=== PATIENT | female | born 1955 | race Asian ===

== ENCOUNTER 2017-05-06 13:10 | Emergency (ER) | payer OTHER ==
[~2017-05-06] VITALS: Ht 157.5 cm; Wt 72.6 kg
[~2017-05-06 13:10] MED LIST: AMOX875 PO; CYCL10 PO; ESOM20 PO; HYDACE5 PO; IBUP400 PO; ONDA4ODT MM; PROM25 PO; SUDOGEST
[2017-05-06 13:44] LABS: BASOPHILS ABSOLUTE AUTO 0.03 K/mm3 (0.00-0.23); BASOPHILS PERCENT AUTO 1 % (0-2); EOSINOPHILS ABSOLUTE AUTO 0.07 K/mm3 (0.00-0.68); EOSINOPHILS PERCENT AUTO 1 % (0-6); Hematocrit 41.5 % (33.0-51.0); Hemoglobin 13.7 g/dL (11.5-16.0); IMMATURE GRAN ABSOLUTE AUTO 0.01 K/mm3 (0.00-0.10); IMMATURE GRAN PERCENT AUTO 0 % (0-1); LYMPHOCYTES ABSOLUTE AUTO 2.54 K/mm3 (0.84-5.20); LYMPHOCYTES PERCENT AUTO 38 % (21-46); MONOCYTES ABSOLUTE AUTO 0.55 K/mm3 (0.16-1.47); MONOCYTES PERCENT AUTO 8 % (4-13); Mean Corpuscular HGB 29.6 pg (26.0-34.0); Mean Corpuscular Volume 90 fL (80-100); Mean Platelet Volume 10.2 fL (9.1-12.4); NEUTROPHILS ABSOLUTE AUTO 3.41 K/mm3 (1.96-9.15); NEUTROPHILS PERCENT AUTO 52 % (41-73); Platelet Count 237 K/mm3 (150-400); RDW Coefficient Variation 12.6 % (11.7-14.2); RDW Standard Deviation 40.8 fL (35.1-46.3); Red Blood Cell Count 4.63 M/mm3 (3.80-5.20); White Blood Cell Count 6.61 K/mm3 (4.00-11.30)
[2017-05-06 14:04] LABS: Alanine Aminotransfer (ALT/SGP 31 U/L (12-78); Albumin, Blood 3.5 g/dL (3.4-5.0); Albumin/Globulin Ratio 0.8 (0.8-1.8); Alk Phos 81 U/L (50-136); Anion Gap 6 mmol/L (6-16); Aspartate Aminotrans (AST/SGOT 24 U/L (12-37); Bilirubin, Total 0.4 mg/dL (0.1-1.0); Blood Urea Nitrogen 21 mg/dL (8-24); Bun/Creatinine Ratio 31.7 (12.0-20.0); CO2, Blood 25 mmol/L (21-32); Calcium, Blood 8.6 mg/dL (8.5-10.1); Chloride, Blood 108 mmol/L (98-108); Creatinine, Blood 0.66 mg/dL (0.40-1.00); Globulin, Blood 4.2 g/dL (2.2-4.0); Glomerular Filtration Rate >60 (60-); Glucose, Blood 88 mg/dL (70-99); Potassium, Blood 4.2 mmol/L (3.5-5.5); Sodium, Blood 139 mmol/L (136-145); Total Protein, Blood 7.7 g/dL (6.4-8.2)
[2017-05-06 15:04] LABS: Troponin I <0.015 ng/mL (0.000-0.040)
[2017-05-06 15:45] LABS: Thyroid Stimulating Hormone 0.557 uIU/mL (0.360-4.800)
[2017-05-06] MEDS ORDERED: Motion Sickness25 M1 PO (16:03)
[2017-05-06] MEDS ORDERED: MECL12.5 PO (16:05)
== END 2017-05-06 16:11 | disposition home or self-care (01) ==
LOC: ER 13:10
PROVIDERS: Emergency Medicine
DX: R42 Dizziness and giddiness (principal); R11.0 Nausea; Z88.1 Allergy status to other antibiotic agents
CPT/HCPCS: 36415; 80050; 80053; 81000; 84443; 84484; 85025; 93005; 93010; 96361; 96374; 99284; J2550; J7030

== ENCOUNTER 2017-10-18 12:49 | Emergency (ER) | payer OTHER ==
[~2017-10-18] VITALS: Ht 165.1 cm; Wt 81.7 kg
[~2017-10-18 12:49] MED LIST changes: +MECL12.5 PO; +Motion Sickness25 M1 PO
[2017-10-18 13:26] LABS: BASOPHILS ABSOLUTE AUTO 0.03 K/mm3 (0.00-0.23); BASOPHILS PERCENT AUTO 0 % (0-2); EOSINOPHILS ABSOLUTE AUTO 0.13 K/mm3 (0.00-0.68); EOSINOPHILS PERCENT AUTO 2 % (0-6); Hemoglobin 13.6 g/dL (11.5-16.0); IMMATURE GRAN ABSOLUTE AUTO 0.01 K/mm3 (0.00-0.10); IMMATURE GRAN PERCENT AUTO 0 % (0-1); LYMPHOCYTES ABSOLUTE AUTO 2.96 K/mm3 (0.84-5.20); LYMPHOCYTES PERCENT AUTO 42 % (21-46); MONOCYTES ABSOLUTE AUTO 0.55 K/mm3 (0.16-1.47); MONOCYTES PERCENT AUTO 8 % (4-13); Mean Corpuscular HGB 29.8 pg (26.0-34.0); Mean Corpuscular HGB Conc 33.2 g/dL (31.5-36.5); Mean Corpuscular Volume 90 fL (80-100); Mean Platelet Volume 9.9 fL (9.1-12.4); NEUTROPHILS ABSOLUTE AUTO 3.33 K/mm3 (1.96-9.15); NEUTROPHILS PERCENT AUTO 48 % (41-73); Platelet Count 237 K/mm3 (150-400); RDW Coefficient Variation 12.3 % (11.7-14.2); RDW Standard Deviation 40.6 fL (35.1-46.3); Red Blood Cell Count 4.56 M/mm3 (3.80-5.20); White Blood Cell Count 7.01 K/mm3 (4.00-11.30)
[2017-10-18 14:20] LABS: Alanine Aminotransfer (ALT/SGP 31 U/L (12-78); Albumin, Blood 3.6 g/dL (3.4-5.0); Albumin/Globulin Ratio 0.9 (0.8-1.8); Alk Phos 77 U/L (50-136); Anion Gap 10 mmol/L (6-16); Aspartate Aminotrans (AST/SGOT 36 U/L (12-37); Bilirubin, Total 0.5 mg/dL (0.1-1.0); Blood Urea Nitrogen 12 mg/dL (8-24); Bun/Creatinine Ratio 13.4 (12.0-20.0); CO2, Blood 24 mmol/L (21-32); Calcium, Blood 9.2 mg/dL (8.5-10.1); Chloride, Blood 105 mmol/L (98-108); Glomerular Filtration Rate >60 (60-); Glucose, Blood 121 mg/dL (70-99); Potassium, Blood 3.8 mmol/L (3.5-5.5); Sodium, Blood 139 mmol/L (136-145); Total Protein, Blood 7.6 g/dL (6.4-8.2)
[2017-10-18] MEDS ORDERED: HYDR1TAB94 PO (14:34)
[2017-10-18] MEDS ORDERED: IBUP600 PO (14:34)
== END 2017-10-18 15:05 | disposition home or self-care (01) ==
LOC: ER 12:49
PROVIDERS: Emergency Medicine
DX: T23.071A Burn of unspecified degree of right wrist, initial encounter (principal); M54.2 Cervicalgia; R10.13 Epigastric pain; Z88.0 Allergy status to penicillin; V47.5XXA Car driver injured in collision with fixed or stationary object in traffic accident, initial encounter
CPT/HCPCS: 16000; 71045; 72125; 74177; 80053; 83690; 85025; 96374; 99285-25; J3010; Q9967

== ENCOUNTER → 2017-10-23 | Outpatient (CLI) | payer OTHER ==
[~2017-10-23] MED LIST changes: +HYDR1TAB94 PO; +IBUP600 PO
[2017-10-23 13:02] LABS: BASOPHILS ABSOLUTE AUTO 0.03 K/mm3 (0.00-0.23); BASOPHILS PERCENT AUTO 1 % (0-2); EOSINOPHILS ABSOLUTE AUTO 0.08 K/mm3 (0.00-0.68); EOSINOPHILS PERCENT AUTO 1 % (0-6); Hematocrit 40.5 % (33.0-51.0); Hemoglobin 13.3 g/dL (11.5-16.0); IMMATURE GRAN ABSOLUTE AUTO 0.01 K/mm3 (0.00-0.10); IMMATURE GRAN PERCENT AUTO 0 % (0-1); LYMPHOCYTES ABSOLUTE AUTO 2.16 K/mm3 (0.84-5.20); LYMPHOCYTES PERCENT AUTO 39 % (21-46); MONOCYTES ABSOLUTE AUTO 0.51 K/mm3 (0.16-1.47); MONOCYTES PERCENT AUTO 9 % (4-13); Mean Corpuscular HGB 29.6 pg (26.0-34.0); Mean Corpuscular HGB Conc 32.8 g/dL (31.5-36.5); Mean Corpuscular Volume 90 fL (80-100); Mean Platelet Volume 9.7 fL (9.1-12.4); NEUTROPHILS PERCENT AUTO 50 % (41-73); Platelet Count 248 K/mm3 (150-400); RDW Coefficient Variation 12.5 % (11.7-14.2); RDW Standard Deviation 41.3 fL (35.1-46.3); White Blood Cell Count 5.59 K/mm3 (4.00-11.30)
== END | disposition home or self-care (01) ==
LOC: LAB EV 12:57 → LAB SHORT 12:57
PROVIDERS: Physician Assistant
DX: R10.9 Unspecified abdominal pain (principal)
CPT/HCPCS: 85025

== ENCOUNTER 2018-04-14 23:50 | Emergency (ER) | payer OTHER ==
[~2018-04-14] VITALS: Ht 157.5 cm; Wt 72.6 kg
[2018-04-15] MEDS ORDERED: MOTION RELIEF25 MG PO (01:34)
[2018-04-15] MEDS ORDERED: ONDA8 PO (01:35)
[2018-04-15 01:41] LABS: BASOPHILS ABSOLUTE AUTO 0.04 K/mm3 (0.00-0.23); BASOPHILS PERCENT AUTO 1 % (0-2); EOSINOPHILS ABSOLUTE AUTO 0.22 K/mm3 (0.00-0.68); EOSINOPHILS PERCENT AUTO 3 % (0-6); Hematocrit 43.4 % (33.0-51.0); Hemoglobin 14.1 g/dL (11.5-16.0); IMMATURE GRAN ABSOLUTE AUTO 0.01 K/mm3 (0.00-0.10); IMMATURE GRAN PERCENT AUTO 0 % (0-1); LYMPHOCYTES ABSOLUTE AUTO 2.87 K/mm3 (0.84-5.20); LYMPHOCYTES PERCENT AUTO 37 % (21-46); MONOCYTES ABSOLUTE AUTO 0.77 K/mm3 (0.16-1.47); MONOCYTES PERCENT AUTO 10 % (4-13); Mean Corpuscular HGB 29.6 pg (26.0-34.0); Mean Corpuscular HGB Conc 32.5 g/dL (31.5-36.5); Mean Corpuscular Volume 91 fL (80-100); Mean Platelet Volume 9.5 fL (9.1-12.4); NEUTROPHILS ABSOLUTE AUTO 3.85 K/mm3 (1.96-9.15); NEUTROPHILS PERCENT AUTO 50 % (41-73); Platelet Count 281 K/mm3 (150-400); RDW Coefficient Variation 12.3 % (11.7-14.2); RDW Standard Deviation 41.4 fL (35.1-46.3); Red Blood Cell Count 4.76 M/mm3 (3.80-5.20); White Blood Cell Count 7.76 K/mm3 (4.00-11.30)
[2018-04-15 02:00] LABS: Alanine Aminotransfer (ALT/SGP 26 U/L (12-78); Albumin, Blood 3.7 g/dL (3.4-5.0); Albumin/Globulin Ratio 0.8 (0.8-1.8); Alk Phos 90 U/L (50-136); Anion Gap 6 mmol/L (6-16); Aspartate Aminotrans (AST/SGOT 23 U/L (12-37); Bilirubin, Total 0.4 mg/dL (0.1-1.0); Blood Urea Nitrogen 16 mg/dL (8-24); Bun/Creatinine Ratio 17.4 (12.0-20.0); CO2, Blood 27 mmol/L (21-32); Calcium, Blood 8.8 mg/dL (8.5-10.1); Chloride, Blood 108 mmol/L (98-108); Creatinine, Blood 0.92 mg/dL (0.40-1.00); Globulin, Blood 4.4 g/dL (2.2-4.0); Glomerular Filtration Rate >60 (60-); Glucose, Blood 109 mg/dL (70-99); Potassium, Blood 3.9 mmol/L (3.5-5.5); Sodium, Blood 141 mmol/L (136-145); Total Protein, Blood 8.1 g/dL (6.4-8.2); Troponin I <0.015 ng/mL (0.000-0.040)
[2018-04-15 02:16] LABS: Source, Urine Clean Catch
[2018-04-15 02:18] LABS: Appearance, Urine Clear (Clear); Bilirubin, Urine Neg (Neg); Blood, Urine Neg (Neg); Color, Urine Yellow (P-Yellow); Glucose Qualitative, Urine Neg (Neg); Ketones, Urine Neg (Neg); Leukocyte Esterase, Urine Neg (Neg); Nitrite, Urine Neg (Neg); Protein, Urine Neg (Neg); Urobilinogen, Urine NORM (Normal)
== END 2018-04-15 02:58 | disposition home or self-care (01) ==
LOC: ER 23:50
PROVIDERS: Emergency Medicine
DX: R42 Dizziness and giddiness (principal); Z88.0 Allergy status to penicillin; Z79.899 Other long term (current) drug therapy
CPT/HCPCS: 36415; 80053; 81003; 83690; 84484; 85025; 93005; 93010; 96374; 99283-25; J2405; J7030

== ENCOUNTER → 2018-05-06 | Outpatient (CLI) | payer OTHER ==
[~2018-05-06] MED LIST changes: +MOTION RELIEF25 MG PO; +ONDA8 PO
[2018-05-08 14:08] LABS: HPV 16 Negative (Negative); HPV 18 Negative (Negative); HPV OTHER HR TYPES Negative (Negative)
== END | disposition home or self-care (01) ==
LOC: LAB SHORT 09:50 → LAB 09:50
PROVIDERS: Obstetrics & Gynecology
DX: Z01.419 Encounter for gynecological examination (general) (routine) without abnormal findings (principal)
CPT/HCPCS: 87624; G0123

== ENCOUNTER 2018-06-25 23:44 | Emergency (ER) | payer OTHER ==
[~2018-06-25] VITALS: Ht 160 cm; Wt 77.1 kg
[2018-06-26 00:29] LABS: BASOPHILS ABSOLUTE AUTO 0.02 K/mm3 (0.00-0.23); BASOPHILS PERCENT AUTO 0 % (0-2); EOSINOPHILS PERCENT AUTO 2 % (0-6); Hematocrit 44.8 % (33.0-51.0); Hemoglobin 14.6 g/dL (11.5-16.0); IMMATURE GRAN ABSOLUTE AUTO 0.01 K/mm3 (0.00-0.10); IMMATURE GRAN PERCENT AUTO 0 % (0-1); LYMPHOCYTES ABSOLUTE AUTO 1.92 K/mm3 (0.84-5.20); LYMPHOCYTES PERCENT AUTO 31 % (21-46); MONOCYTES PERCENT AUTO 10 % (4-13); Mean Corpuscular HGB 30.2 pg (26.0-34.0); Mean Corpuscular HGB Conc 32.6 g/dL (31.5-36.5); Mean Corpuscular Volume 93 fL (80-100); Mean Platelet Volume 9.5 fL (9.1-12.4); NEUTROPHILS PERCENT AUTO 58 % (41-73); Platelet Count 277 K/mm3 (150-400); RDW Coefficient Variation 12.8 % (11.7-14.2); RDW Standard Deviation 43.5 fL (35.1-46.3); Red Blood Cell Count 4.84 M/mm3 (3.80-5.20); White Blood Cell Count 6.25 K/mm3 (4.00-11.30)
[2018-06-26 00:47] LABS: Alanine Aminotransfer (ALT/SGP 35 U/L (12-78); Albumin, Blood 4.2 g/dL (3.4-5.0); Alk Phos 94 U/L (50-136); Anion Gap 6 mmol/L (6-16); Aspartate Aminotrans (AST/SGOT 28 U/L (12-37); Bilirubin, Total 0.4 mg/dL (0.1-1.0); Blood Urea Nitrogen 11 mg/dL (8-24); CO2, Blood 28 mmol/L (21-32); Calcium, Blood 9.4 mg/dL (8.5-10.1); Chloride, Blood 107 mmol/L (98-108); Creatinine, Blood 0.73 mg/dL (0.40-1.00); Globulin, Blood 4.3 g/dL (2.2-4.0); Glomerular Filtration Rate >60 (60-); Glucose, Blood 111 mg/dL (70-99); Potassium, Blood 3.8 mmol/L (3.5-5.5); Sodium, Blood 141 mmol/L (136-145); Total Protein, Blood 8.5 g/dL (6.4-8.2)
[2018-06-26 00:54] LABS: Source, Urine Clean Catch
[2018-06-26 00:57] LABS: Bilirubin, Urine Neg (Neg); Blood, Urine 1+ (Neg); Glucose Qualitative, Urine Neg (Neg); Ketones, Urine Neg (Neg); Leukocyte Esterase, Urine Neg (Neg); Nitrite, Urine Neg (Neg); Protein, Urine Neg (Neg); Specific Gravity, Urine 1.015 (1.003-1.022); Urobilinogen, Urine NORM (Normal)
[2018-06-26 01:03] LABS: Appearance, Urine Clear (Clear); Color, Urine Yellow (P-Yellow)
[2018-06-26 01:04] LABS: Bacteria Rare /hpf; Red Blood Cells, Urine Rare /hpf (0-2); Squamous Epithelial Cells Few /hpf (Few); White Blood Cells, Urine Not Seen /hpf (0-5)
== END 2018-06-26 04:05 | disposition home or self-care (01) ==
LOC: ER 23:44
PROVIDERS: Emergency Medicine
DX: R42 Dizziness and giddiness (principal); Z88.0 Allergy status to penicillin; Z79.899 Other long term (current) drug therapy
CPT/HCPCS: 36415; 70450; 80053; 81001; 85025; 96361; 96374; 99284-25; J2405; J7030

== ENCOUNTER 2018-08-14 20:33 | Emergency (ER) | payer OTHER ==
[~2018-08-14] VITALS: Ht 157.5 cm; Wt 77.1 kg
[~2018-08-14 20:33] MED LIST changes: -ONDA8 PO
[2018-08-14 21:01] LABS: BASOPHILS ABSOLUTE AUTO 0.02 K/mm3 (0.00-0.23); BASOPHILS PERCENT AUTO 0 % (0-2); EOSINOPHILS ABSOLUTE AUTO 0.17 K/mm3 (0.00-0.68); EOSINOPHILS PERCENT AUTO 2 % (0-6); Hemoglobin 13.1 g/dL (11.5-16.0); IMMATURE GRAN ABSOLUTE AUTO 0.02 K/mm3 (0.00-0.10); IMMATURE GRAN PERCENT AUTO 0 % (0-1); LYMPHOCYTES ABSOLUTE AUTO 2.92 K/mm3 (0.84-5.20); LYMPHOCYTES PERCENT AUTO 38 % (21-46); MONOCYTES PERCENT AUTO 11 % (4-13); Mean Corpuscular HGB 29.6 pg (26.0-34.0); Mean Corpuscular Volume 93 fL (80-100); Mean Platelet Volume 9.8 fL (9.1-12.4); NEUTROPHILS PERCENT AUTO 48 % (41-73); Platelet Count 250 K/mm3 (150-400); RDW Coefficient Variation 12.6 % (11.7-14.2); RDW Standard Deviation 43.5 fL (35.1-46.3); Red Blood Cell Count 4.42 M/mm3 (3.80-5.20); White Blood Cell Count 7.63 K/mm3 (4.00-11.30)
[2018-08-14 21:21] LABS: Alanine Aminotransfer (ALT/SGP 30 U/L (12-78); Albumin, Blood 3.6 g/dL (3.4-5.0); Albumin/Globulin Ratio 0.9 (0.8-1.8); Alk Phos 91 U/L (50-136); Anion Gap 6 mmol/L (6-16); Aspartate Aminotrans (AST/SGOT 25 U/L (12-37); Bilirubin, Total 0.3 mg/dL (0.1-1.0); Blood Urea Nitrogen 18 mg/dL (8-24); Bun/Creatinine Ratio 20.4 (12.0-20.0); CO2, Blood 29 mmol/L (21-32); Calcium, Blood 8.8 mg/dL (8.5-10.1); Chloride, Blood 107 mmol/L (98-108); Creatinine, Blood 0.88 mg/dL (0.40-1.00); Globulin, Blood 3.8 g/dL (2.2-4.0); Glomerular Filtration Rate >60 (60-); Glucose, Blood 103 mg/dL (70-99); Potassium, Blood 3.8 mmol/L (3.5-5.5); Sodium, Blood 142 mmol/L (136-145); Total Protein, Blood 7.4 g/dL (6.4-8.2)
[2018-08-14 23:32] LABS: Source, Urine Clean Catch
[2018-08-14 23:35] LABS: Bilirubin, Urine Neg (Neg); Blood, Urine Neg (Neg); Glucose Qualitative, Urine Neg (Neg); Ketones, Urine Neg (Neg); Leukocyte Esterase, Urine Neg (Neg); Nitrite, Urine Neg (Neg); Protein, Urine Neg (Neg); Specific Gravity, Urine 1.015 (1.003-1.022); Urobilinogen, Urine NORM (Normal); pH, Urine 6.5 (5.0-8.0)
[2018-08-14 23:45] LABS: Appearance, Urine Clear (Clear); Color, Urine Yellow (P-Yellow)
== END 2018-08-15 00:13 | disposition home or self-care (01) ==
LOC: ER 20:33
PROVIDERS: Emergency Medicine
DX: R42 Dizziness and giddiness (principal); R11.0 Nausea; Z88.1 Allergy status to other antibiotic agents; Z79.899 Other long term (current) drug therapy
CPT/HCPCS: 36415; 80053; 81003; 83690; 84484; 85025; 93005; 93010; 96361; 96374; 99284-25; J2405; J7030

== ENCOUNTER 2018-08-19 18:34 | Inpatient (IN) | payer OTHER ==
[~2018-08-19] VITALS: Ht 165.1 cm; Wt 81.6 kg
[2018-08-19 19:18] LABS: Source, Urine Clean Catch
[2018-08-19 19:22] LABS: BASOPHILS ABSOLUTE AUTO 0.02 K/mm3 (0.00-0.23); BASOPHILS PERCENT AUTO 0 % (0-2); EOSINOPHILS ABSOLUTE AUTO 0.07 K/mm3 (0.00-0.68); EOSINOPHILS PERCENT AUTO 1 % (0-6); Hematocrit 41.9 % (33.0-51.0); Hemoglobin 13.8 g/dL (11.5-16.0); IMMATURE GRAN ABSOLUTE AUTO 0.01 K/mm3 (0.00-0.10); IMMATURE GRAN PERCENT AUTO 0 % (0-1); LYMPHOCYTES ABSOLUTE AUTO 2.39 K/mm3 (0.84-5.20); LYMPHOCYTES PERCENT AUTO 35 % (21-46); MONOCYTES ABSOLUTE AUTO 0.67 K/mm3 (0.16-1.47); MONOCYTES PERCENT AUTO 10 % (4-13); Mean Corpuscular HGB 30.2 pg (26.0-34.0); Mean Corpuscular HGB Conc 32.9 g/dL (31.5-36.5); Mean Corpuscular Volume 92 fL (80-100); Mean Platelet Volume 9.4 fL (9.1-12.4); NEUTROPHILS ABSOLUTE AUTO 3.59 K/mm3 (1.96-9.15); NEUTROPHILS PERCENT AUTO 53 % (41-73); Platelet Count 262 K/mm3 (150-400); RDW Coefficient Variation 12.5 % (11.7-14.2); Red Blood Cell Count 4.57 M/mm3 (3.80-5.20); White Blood Cell Count 6.75 K/mm3 (4.00-11.30)
[2018-08-19 19:28] LABS: Bilirubin, Urine Neg (Neg); Blood, Urine Neg (Neg); Color, Urine Pale Yellow (P-Yellow); Glucose Qualitative, Urine Neg (Neg); Ketones, Urine Neg (Neg); Leukocyte Esterase, Urine Neg (Neg); Nitrite, Urine Neg (Neg); Protein, Urine Neg (Neg); Specific Gravity, Urine 1.005 (1.003-1.022); Urobilinogen, Urine NORM (Normal)
[2018-08-19 19:29] LABS: Appearance, Urine Clear (Clear)
[2018-08-19] MEDS ORDERED: Multivitamin1 EAC1 PO (19:42)
[2018-08-19] MEDS ORDERED: VITAMIN B-122000 MCG PO (19:42)
[2018-08-19] MEDS ORDERED: VENL75ER PO (19:47)
[2018-08-19 19:54] LABS: Alanine Aminotransfer (ALT/SGP 37 U/L (12-78); Albumin, Blood 3.9 g/dL (3.4-5.0); Alk Phos 97 U/L (50-136); Anion Gap 4 mmol/L (6-16); Aspartate Aminotrans (AST/SGOT 25 U/L (12-37); Bilirubin, Total 0.5 mg/dL (0.1-1.0); Blood Urea Nitrogen 9 mg/dL (8-24); Bun/Creatinine Ratio 11.7 (12.0-20.0); CO2, Blood 28 mmol/L (21-32); Calcium, Blood 9.6 mg/dL (8.5-10.1); Chloride, Blood 106 mmol/L (98-108); Creatinine, Blood 0.77 mg/dL (0.40-1.00); Globulin, Blood 4.1 g/dL (2.2-4.0); Glomerular Filtration Rate >60 (60-); Glucose, Blood 156 mg/dL (70-99); Potassium, Blood 3.9 mmol/L (3.5-5.5); Sodium, Blood 138 mmol/L (136-145)
[2018-08-19 20:03] LABS: Magnesium, Blood 2.3 mg/dL (1.6-2.4); Troponin I <0.015 ng/mL (0.000-0.040)
[2018-08-19] MEDS ORDERED: Ondansetron Odt8 MG SL (20:11)
[2018-08-20 02:21] LABS: BASOPHILS ABSOLUTE AUTO 0.02 K/mm3 (0.00-0.23); BASOPHILS PERCENT AUTO 0 % (0-2); EOSINOPHILS ABSOLUTE AUTO 0.01 K/mm3 (0.00-0.68); EOSINOPHILS PERCENT AUTO 0 % (0-6); Hematocrit 38.2 % (33.0-51.0); Hemoglobin 12.6 g/dL (11.5-16.0); IMMATURE GRAN ABSOLUTE AUTO 0.01 K/mm3 (0.00-0.10); IMMATURE GRAN PERCENT AUTO 0 % (0-1); LYMPHOCYTES ABSOLUTE AUTO 1.41 K/mm3 (0.84-5.20); LYMPHOCYTES PERCENT AUTO 23 % (21-46); MONOCYTES ABSOLUTE AUTO 0.39 K/mm3 (0.16-1.47); MONOCYTES PERCENT AUTO 6 % (4-13); Mean Corpuscular Volume 91 fL (80-100); Mean Platelet Volume 9.5 fL (9.1-12.4); NEUTROPHILS ABSOLUTE AUTO 4.37 K/mm3 (1.96-9.15); NEUTROPHILS PERCENT AUTO 70 % (41-73); Platelet Count 250 K/mm3 (150-400); RDW Coefficient Variation 12.6 % (11.7-14.2); RDW Standard Deviation 42.2 fL (35.1-46.3); White Blood Cell Count 6.21 K/mm3 (4.00-11.30)
[2018-08-20 02:35] LABS: International Normalized Ratio 0.99; Prothrombin Time Results 10.5 Sec (9.7-11.5)
--- NOTE | 2018-08-20 02:43 | NUR ---
[facility]ARE [facility]20 FROM ED RN FLAVIA Chao PATIENT ARRIVED TO UNIT VIA STRETCHER; TRANSFER VIA SLIDE SHEET AND THREE STAFF FROM ED TO PCU STRETCHER. PATIENT'S DAUGHTER AT BEDSIDE FOR ADMISSION. PATIENT ALERT AND ORIENTED X4; REPORTS SHE IS TIRED AND DROWSY AT TIMES. POTASSIUM INFUSING PER ORDER UPON ARRIVAL; NS STARTED PER ORDER. REPORTED FROM ED RN TO NOT GIVEN AMIODARONE GTT; WAS GIVEN METOPROLOL IV AND PO; VTAC HAS DECREASED FROM 4-6 DOWN TO 1-2 TO PVC'S. PATIENT ABLE TO COMMUNICATE NEEDS WITH STAFF; SPEAKS MONTSERRATIAN; DAUGHTER REPORTS STAFF NEEDS TO TALK SLOW SO PATIENT CAN UNDERSTAND BETTER. PATIENT USES BEDPAN IN BED. NSR W/ SOME VTAC NOTED SINCE ADMISSION; OXYGEN SATURATION ABOVE 90% ON ROOM AIR. ADMISSION COMPLETE. PATIENT CURRENTLY RESTING IN BED; CALL LIGHT IN REACH; BED IN LOWEST POSISTION; WILL CONTINUE TO MONITOR AND ASSESS UNTIL END OF SHIFT.
[2018-08-20 02:48] LABS: Alanine Aminotransfer (ALT/SGP 28 U/L (12-78); Albumin, Blood 3.3 g/dL (3.4-5.0); Albumin/Globulin Ratio 0.9 (0.8-1.8); Alk Phos 83 U/L (50-136); Anion Gap 5 mmol/L (6-16); Aspartate Aminotrans (AST/SGOT 18 U/L (12-37); Bilirubin, Total 0.4 mg/dL (0.1-1.0); Blood Urea Nitrogen 7 mg/dL (8-24); Bun/Creatinine Ratio 11.6 (12.0-20.0); CO2, Blood 25 mmol/L (21-32); Calcium, Blood 8.3 mg/dL (8.5-10.1); Chloride, Blood 111 mmol/L (98-108); Free Thyroxine 1.18 ng/dL (0.70-1.60); Globulin, Blood 3.5 g/dL (2.2-4.0); Glomerular Filtration Rate >60 (60-); Glucose, Blood 132 mg/dL (70-99); Magnesium, Blood 2.6 mg/dL (1.6-2.4); Potassium, Blood 4.2 mmol/L (3.5-5.5); Sodium, Blood 141 mmol/L (136-145); Total Protein, Blood 6.8 g/dL (6.4-8.2)
[2018-08-20 02:51] LABS: Triiodothyronine, Free 2.53 pg/mL (2.18-3.98)
--- NOTE | 2018-08-20 06:56 | NUR ---
PATIENT SLEPT ABOUT SIX HOURS LAST NIGHT. VSS. NO MORE THAN 1-2 VTAC RUNS REPORTED. PATIENT UP TO BEDSIDE COMMODE THIS AM; REPORTS SHE IS FEELING BETTER. WILL CONTINUE TO MONITOR AND ASSESS UNTIL END OF SHIFT.
--- NOTE | 2018-08-20 09:20 | NUR ---
LET DR. NOLASCO KNOW THAT PT IS HAVING FREQUENT RUNS OF VTACH UP TO 22 BEATS AND ROUTINE DOSE OF METOPROLOL WAS GIVEN EARLY AND HAS NOT STOPPED THE VTACH. DR. ORDRIGUEZ SAW PT, REVIEWING ECHO RESULTS, AND WORKING ON NEW ORDERS TO TREAT NEW ONSET HYPERTHYROIDISM.
[2018-08-20 12:20] LABS: C-REACTIVE PROTEIN, EXT RANGE <0.290 mg/dL (0.000-0.300)
[2018-08-20 12:24] LABS: Troponin I <0.015 ng/mL (0.000-0.040)
--- NOTE | 2018-08-20 15:49 | NUR ---
REC'D CALL FROM NUCLEAR MED RE: NM THYROID UPTAKE SCAN DR. MEJIA ORDERED FOR TODAY. NM STATED THEY WON'T BE ABLE TO DO THIS TEST UNTIL SATURDAY AT THE [place]ARLIEST DUE TO NEEDING TO ORDER THE ISOTOPE THAT WON'T ARRIVE UNTIL SATURDAY. CALLED DR. MEJIA TO INFORM. DR. MEJIA WILL CANCEL THIS SCAN AND ORDER AND ULTRASOUND OF THE THYROID.
--- NOTE | 2018-08-20 18:29 | NUR ---
NURSING SUMMARY ALERT AND ORIENTED X4. LUNGS CLEAR, ROOM AIR, SATS 99%. SB - SR ON TELEMETRY, HR 58-60'S, MULTIPLE RUNS OF VTACH THROUGHOUT THE DAY, DR. MONTERO AND DR. MEJIA AWARE, PAC'S, DR. NOLASCO WOULD LIKE THE AMIODARONE HELD FOR NOW, ZOLL DEFIBRILLATOR AT BEDSIDE, DEFIBRILLATOR PADS IN PLACE. ASYMPTOMATIC WHEN HAVING RUNS OF VTACH, DOES SOMETIMES FEEL PALPITATIONS. DENIES SOB OR CHEST PAIN. TOLERATING CLEAR LIQUID DIET. VOIDS PER BEDSIDE COMMODE, CALLS FOR STANDBY ASSISTANCE. SKIN INTACT. RAC 20G AND LAC 18G, RECEIVED 1L NS TODAY. AWAITING THYROID ULTRASOUND. ECHO DONE TODAY AND MULTIPLE THYROID LABS.
--- NOTE | 2018-08-20 22:44 | NUR ---
Pt with 5 runs of asymptomatic VTACH since shift change. This RN either at bedside with pt during runs or checked on pt immediately when notified by director telecommunications. runs as follows 1899- beat, asymptomatic 1935- beat, asymptomatic 1939- beat, asymptomatic 2023- beat, asymptomatic 2029- beat, asymptomatic Metoprolol 12.5 mg given at 2009.
--- NOTE | 2018-08-21 06:37 | NUR ---
Shift Summary Pt remains with VSS. No apparent sign of distress. Pt denies any dizziness, SOB, chest pain or pressure. Pt has been restful and sleeping throughout the night, awakens easily to sound. Pacer pads in place, zoll at bedside. Pt without further runs of VTACH since last noted. Pt transfers SBA to bathroom, calls appropriately, remains alert and oriented. Pt is able to make needs known. Call light in reach. Will continue to monitor and update as needed.
--- NOTE | 2018-08-21 17:44 | NUR ---
SHIFT SUMMARY PT ALERT AND ORIENTED. VS STABLE. HR HAS BEEN NSR WITH A RATE IN THE 60'S WITH FREQUENT RUNS OF VTACH. PT ASYMPTOMATIC WITH RUNS OF VTACH. PT DENIES ANY PAIN. PT DENIES ANY DIZZINESS. BP STABLE. PT AMBULATING TO BATHROOM NEEDED WITH SBA. NO OTHER COMPLAINS THIS SHIFT. WILL CONTINUE TO MONITOR AND REPORT TO ONCOMING RN. CALL LIGHT IN REACH.
--- NOTE | 2018-08-21 22:00 | NUR ---
Pt with continued asymptomatic runs of vtach between 7-16 beats. Pt denies chest pain, pressure, becoming dizzy, denies SOB, denies any changes. Will continue to monitor. VSS. pt breathing easy and unlabored. See shift assessment for detailed assessment.
--- NOTE | 2018-08-22 05:14 | NUR ---
Shift Summary VSS. pt in no apparent sign of distress and no acute changes this shift. Pt remains with nonsustained VTach, but frequency improved after administration of IV lopressor at 0127. Pt states "I feel normal". No changes from initial shift assessment. Call light in reach, pt able to make needs known, ambulates independantly, remains alert and oriented, denies chest pain or pressure, denies feeling dizzy or lightheaded. Will continue to monitor.
--- NOTE | 2018-08-22 18:47 | NUR ---
END OF SHIFT; PT HAD ONE RUN OF 28 BEAT V TACK TODAY THAT HAD NO SYMPTOMS NOTED BY PATIENT. SHE DOES REMAIN IN BED DURING DAY WITH LIGHTS LOW PER HER REQUEST. SHE IS VERY CONCERNED THAT HER IS IN THE [place] [facility] AND SHE IS HIS CAREGIVER. NEW ORDERS ARE RECEIVED FROM CARDIOLOGY AT SHIFT CHANGE.
--- NOTE | 2018-08-22 23:01 | NUR ---
Assumed care of pt at approx 1900. PT with VSS, no apparent sign of distress, no complaints of pain. Pt denies SOB, feelings of lightheadedness or dizzy, denies experiencing palpatations, denies chest pain or pressure. Pt continues to state "I feel normal". Pt without Vtach so far this shift. Medicated with metoprolol and cardizem per orders. Pacer pads in place, zoll remains at bedside. See shift assessment for detailed assessment. Call light in reach, able to make needs knonw, independant in room. Will continue to monitor.
--- NOTE | 2018-08-23 06:22 | NUR ---
Shift Summary Pt remains without any events on Tele, no runs of Vtach since 1749 on 08/22. Pt alert and oriented. VSS. no sign of distress or discomfort. Pt denies pain, denies SOB, denies chest pain/pressure. No changes from initial shift assessment. Call light in reach, able to make needs known, calls appropriately. Will continue to monitor and update as needed.
--- NOTE | 2018-08-23 16:51 | NUR ---
SHIFT SUMMARY PT RESTING IN BED THROUGHOUT THE DAY. VSS. ALERT AND ORIENTED X3. DENIES PAIN THROUGHOUT THE DAY. AMBULATING INDEPENDENTLY TO BATHROOM. LUNG SOUNDS CLEAR, SINUS BRADYCARDIA RATE 40s-60s. WILL CONTINUE TO MONITOR. ORTHOSTATIC VITALS COMPLETE. LYING: BP 140/62 HR 48 SITTING: BP 135/64 HR 49 STANDING: BP 119/69 HR 55
--- NOTE | 2018-08-24 06:04 | NUR ---
SHIFT SUMMARY: PT RESTING IN BED MOST OF SHIFT. A&O X4. SINUS BRADYCARDIA WITH HR RANGING FROM 58-59. 2100 METOPROLOL HELD BECAUSE HR OF 40-50'S THROUGHOUT DAY YESTERDAY. HR REMAINS AT 58 THIS MORNING. PT ASYMPTOMATIC; DENIES DIZZINESS AND CHEST PAIN. INDEPENDENT IN ROOM. REPOSITIONING SELF T/O NIGHT. POSSIBLE DISCHARGE TODAY.
--- NOTE | 2018-08-24 16:42 | NUR ---
SHIFT SUMMARY PT RESTING IN BED THROUGHOUT THE DAY. VSS. ALERT AND ORIENTED X3. UP TO BATHROOM INDEPENDENTLY. LUNG SOUNDS CLEAR, SINUS BRADYCARDIA RATE 58 ON TELEMETRY. PT HAD 14 BEAT RUN OF VTACH THIS MORNING AT 0923, BUT WAS ASYMPTOMATIC WITH IRREGULAR RHYTHM. DOCTORS AWARE. NO NEW ORDERS. AM MEDS GIVEN. PT HAS HAD NO OTHER EPISODES OF VT THIS SHIFT. WILL CONTINUE TO MONITOR.
--- NOTE | 2018-08-25 05:32 | NUR ---
SHIFT SUMMARY PT A&O X4 T/O SHIFT. RA; PT DENIES SOB; SATS IN 90%. TELEMETRY IN PLACE; AVG HR SB IN 50'S PER BINDERY CHIEF; PT DENIES CP. CALL LIGHT IN REACH; PT DEMONSTRATES USE. WCTM UNTIL REPORT TO DAY SHIFT RN.
[2018-08-25] MEDS ORDERED: DILT120 PO (12:38)
[2018-08-25] MEDS ORDERED: Lopressor 25 mg25 MG PO (12:47)
--- NOTE | 2018-08-25 13:35 | NUR ---
DISCHARGE NOTE PT AMBULATED THROUGHOUT NURSING UNIT AND INDEPENDENTLY IN ROOM WITH NO SYMPTOMS AND NO EPISODES / RUNS OF VT. PT STABLE FOR DISCHARGE. IV X2 REMOVED. DISCHARGE INSTRUCTIONS, DISCHARGE MEDICATIONS, AND MEDICATION EDUCATION PROVIDED TO PT AND REVIEWED WITH PT AND DAUGHTER. PT EDUCATED ON HER NEED TO KEEP HER APPOINTMENT TOMORROW MORNING FOR A NUCLEAR MEDICINE THYROID SCAN. PT AND DAUGHTER VERBALIZE UNDERSTANDING AND DENY QUESTIONS. PT DISCHARGED VIA WHEELCHAIR TO WAITING CAR.
== END 2018-08-25 13:23 | disposition home or self-care (01) | DRG 310 ==
LOC: ER 18:34 → PCU 22:23
PROVIDERS: Emergency Medicine; Internal Medicine Cardiovascular Disease; Nurse Practitioner Acute Care; ADMIT Hospitalist
DX: I47.2 Ventricular tachycardia (principal); E05.90 Thyrotoxicosis, unspecified without thyrotoxic crisis or storm; E04.1 Nontoxic single thyroid nodule; R00.1 Bradycardia, unspecified; T46.1X5A Adverse effect of calcium-channel blockers, initial encounter; Y92.239 Unspecified place in hospital as the place of occurrence of the external cause
CPT/HCPCS: 36415; 71045; 76536; 80053; 81003; 83690; 83735; 84439; 84443; 84481; 84484; 85025; 85610; 85651; 86140; 93005; 93010; 93306; 96365; 96367; 96375; 96376; 97110; 97116; 97161; 99285-25; J0282; J1200; J1630; J1650; J3475; J3480; J7030; J7060

== ENCOUNTER 2018-10-29 05:56 | Day surgery (SDC) | payer OTHER ==
[~2018-10-29] VITALS: Ht 157.5 cm; Wt 77.0 kg
[~2018-10-29 05:56] MED LIST changes: +DILT120 PO; +Lopressor 25 mg25 MG PO; +Multivitamin1 EAC1 PO; +Ondansetron Odt8 MG SL; +VENL75ER PO; +VITAMIN B-122000 MCG PO
[2018-10-29] MEDS ORDERED: ASPI81CH PO (09:09)
[2018-10-29] MEDS ORDERED: ATOR40TA PO (09:10)
--- NOTE | 2018-10-29 11:02 | NUR ---
DR NOLASCO IN ROOM DISCUSSING PLAN OF CARE. VSS. PAT. CALL LIGHT WITHIN REACH. FAMILY AT BEDSIDE. R RADIAL TR BAND FULLY DEFLATED. NO BLEEDING OR HEMATOMA NOTED.
--- NOTE | 2018-10-29 11:44 | NUR ---
PT DRESSED SELF WITH NO COMPLICATIONS. PT DENIES PAINS PAIN AT SITE. NO BLEEDING, OOZING OR SWELLING NOTED. DOT DRESSING APPLIED AND ARM PLACED IN SLING. PT AND FAMILY STATE UNDERSTANDING OF DC INSTRUCTIONS AND SITE CARE INSTRUCTIONS. IV DCD WITH CATH INTACT. VSS. PT DCD IN WHEELCHAIR.
== END 2018-10-29 12:04 | disposition home or self-care (01) ==
LOC: MHTC 05:56
DX: I25.10 Atherosclerotic heart disease of native coronary artery without angina pectoris (principal); K21.9 Gastro-esophageal reflux disease without esophagitis; Z88.0 Allergy status to penicillin; Z79.899 Other long term (current) drug therapy
CPT/HCPCS: 93454; 99152; 99153; C1769; C1894; J1644; J2250; J3010; J7030; Q9967

== ENCOUNTER 2021-05-23 07:42 | Day surgery (SDC) | payer MEDICARE, OTHER ==
[~2021-05-23] VITALS: Ht 157.5 cm; Wt 71.0 kg
[~2021-05-23 07:42] MED LIST changes: +ASPI81CH PO; +ATOR40TA PO
[2021-05-23] MEDS ORDERED: EUTHYROX50 MCG PO (08:02)
[2021-05-23] MEDS ORDERED: OMEP20ER (08:02)
--- NOTE | 2021-05-23 08:03 | NUR ---
05/23/21 0803 Srinath Doshi CALL LIGHT WITHN REACH
== END 2021-05-23 09:09 | disposition home or self-care (01) ==
LOC: ORSCSDS 07:42
PROVIDERS: Student in an Organized Health Care Education/Training Program
PROC: 0DB48ZX Excision of Esophagogastric Junction, Via Natural or Artificial Opening Endoscopic, Diagnostic (ICD-10-PCS; principal; 2021-05-23 08:15)
PROC: 0DB68ZX Excision of Stomach, Via Natural or Artificial Opening Endoscopic, Diagnostic (ICD-10-PCS; principal; 2021-05-23 08:15)
PROC: 0DB88ZX Excision of Small Intestine, Via Natural or Artificial Opening Endoscopic, Diagnostic (ICD-10-PCS; principal; 2021-05-23 08:15)
DX: R10.12 Left upper quadrant pain (principal); K29.40 Chronic atrophic gastritis without bleeding; K21.9 Gastro-esophageal reflux disease without esophagitis; I48.91 Unspecified atrial fibrillation; Z79.01 Long term (current) use of anticoagulants; N18.9 Chronic kidney disease, unspecified; F32.A Depression, unspecified; Z79.899 Other long term (current) drug therapy
CPT/HCPCS: 88305; 88342; J2704; J7120

== ENCOUNTER 2022-01-01 12:13 | Emergency (ER) | payer MEDICARE, OTHER ==
[~2022-01-01] VITALS: Ht 157.5 cm; Wt 70.3 kg
[~2022-01-01 12:13] MED LIST changes: +EUTHYROX50 MCG PO; +OMEP20ER
[2022-01-01 13:02] LABS: BASOPHILS ABSOLUTE AUTO 0.03 K/mm3 (0.00-0.23); BASOPHILS PERCENT AUTO 1 % (0-2); EOSINOPHILS ABSOLUTE AUTO 0.07 K/mm3 (0.00-0.68); EOSINOPHILS PERCENT AUTO 1 % (0-6); Hematocrit 40.6 % (33.0-51.0); Hemoglobin 13.9 g/dL (11.5-16.0); IMMATURE GRAN ABSOLUTE AUTO 0.02 K/mm3 (0.00-0.10); IMMATURE GRAN PERCENT AUTO 0 % (0-1); LYMPHOCYTES ABSOLUTE AUTO 2.46 K/mm3 (0.84-5.20); LYMPHOCYTES PERCENT AUTO 38 % (21-46); MONOCYTES ABSOLUTE AUTO 0.51 K/mm3 (0.16-1.47); MONOCYTES PERCENT AUTO 8 % (4-13); Mean Corpuscular HGB 30.2 pg (26.0-34.0); Mean Corpuscular HGB Conc 34.2 g/dL (31.5-36.5); Mean Corpuscular Volume 88 fL (80-100); Mean Platelet Volume 9.5 fL (9.1-12.4); NEUTROPHILS ABSOLUTE AUTO 3.34 K/mm3 (1.96-9.15); NEUTROPHILS PERCENT AUTO 52 % (41-73); Platelet Count 239 K/mm3 (150-400); RDW Coefficient Variation 12.7 % (11.7-14.2); RDW Standard Deviation 41.1 fL (35.1-46.3); Red Blood Cell Count 4.61 M/mm3 (3.80-5.20); White Blood Cell Count 6.43 K/mm3 (4.00-11.30)
[2022-01-01 13:32] LABS: Albumin, Blood 3.6 g/dL (3.4-5.0); Albumin/Globulin Ratio 0.9 (0.8-1.8); Bilirubin, Total 0.4 mg/dL (0.1-1.0); Bun/Creatinine Ratio 17.8 (12.0-20.0); Calcium, Blood 9.2 mg/dL (8.5-10.1); Creatinine, Blood 1.07 mg/dL (0.40-1.00); Potassium, Blood 4.1 mmol/L (3.5-5.5); Thyroid Stimulating Hormone 2.59 uIU/mL (0.360-4.800); Total Protein, Blood 7.6 g/dL (6.4-8.2)
[2022-01-01] MEDS ORDERED: PLAVIX75 MG PO (16:23)
[2022-01-01] MEDS ORDERED: PROZAC40 MG PO (16:24)
[2022-01-01] MEDS ORDERED: METO50ER PO (16:24)
[2022-01-01] MEDS ORDERED: FAMO20 PO (16:25)
[2022-01-01] MEDS ORDERED: METHI10 PO (16:26)
== END 2022-01-01 19:21 | disposition home or self-care (01) ==
LOC: ER 12:13
PROVIDERS: Physician Assistant
DX: R00.8 Other abnormalities of heart beat (principal); R42 Dizziness and giddiness; K21.9 Gastro-esophageal reflux disease without esophagitis; Z79.890 Hormone replacement therapy; Z79.82 Long term (current) use of aspirin; Z79.899 Other long term (current) drug therapy; Z88.0 Allergy status to penicillin
CPT/HCPCS: 71046; 80053; 83690; 83735; 83880; 84443; 84484; 85025; 93005; 93010; 99284-25; J7030

== ENCOUNTER → 2023-05-31 | Outpatient (CLI) | payer MEDICARE, OTHER ==
[~2023-05-31] MED LIST changes: +FAMO20 PO; +METHI10 PO; +METO50ER PO; +PLAVIX75 MG PO; +PROZAC40 MG PO
== END ==
LOC: LAB SHORT 15:15 → LAB 15:15
DX: R87.614 Cytologic evidence of malignancy on smear of cervix (principal)
CPT/HCPCS: 88305

== ENCOUNTER → 2024-05-15 | Outpatient (CLI) | payer MEDICARE, OTHER ==
[2024-05-16 10:03] LABS: Stool Occult Bld Immuno 1 Positive (NEGATIVE)
== END ==
LOC: LAB 04:55 → LAB SHORT 04:55
PROVIDERS: Physician Assistant
DX: Z12.11 Encounter for screening for malignant neoplasm of colon (principal)
CPT/HCPCS: 82274

== ENCOUNTER 2024-08-27 09:31 | Day surgery (SDC) | payer MEDICARE, OTHER ==
[~2024-08-27] VITALS: Ht 157.5 cm; Wt 65.8 kg
[~2024-08-27 09:31] MED LIST changes: +Lactated Ringer's 1,000 ML IV ONE; +propofoL 50 ML IV ONE
[2024-08-27] MEDS ORDERED: SOTALOL8011 (10:34)
[2024-08-27] MEDS ORDERED: Lactated Ringer's 1,000 ML IV ONE (11:20)
[2024-08-27 12:33] VITALS: BP 128/78
== END 2024-08-27 12:28 | disposition home or self-care (01) ==
LOC: ORSCSDS 09:31
PROVIDERS: Specialist
PROC: 0DB58ZX Excision of Esophagus, Via Natural or Artificial Opening Endoscopic, Diagnostic (ICD-10-PCS; principal; 2024-08-27 11:00)
PROC: 0DBM8ZX Excision of Descending Colon, Via Natural or Artificial Opening Endoscopic, Diagnostic (ICD-10-PCS; principal; 2024-08-27 11:00)
PROC: 0DB78ZX Excision of Stomach, Pylorus, Via Natural or Artificial Opening Endoscopic, Diagnostic (ICD-10-PCS; principal; 2024-08-27 11:00)
PROC: 0DBL8ZX Excision of Transverse Colon, Via Natural or Artificial Opening Endoscopic, Diagnostic (ICD-10-PCS; principal; 2024-08-27 11:00)
PROC: 0DB98ZX Excision of Duodenum, Via Natural or Artificial Opening Endoscopic, Diagnostic (ICD-10-PCS; principal; 2024-08-27 11:00)
DX: R19.5 Other fecal abnormalities (principal); K21.9 Gastro-esophageal reflux disease without esophagitis; D12.3 Benign neoplasm of transverse colon; D12.4 Benign neoplasm of descending colon; K64.8 Other hemorrhoids; K64.4 Residual hemorrhoidal skin tags; I48.91 Unspecified atrial fibrillation; Z79.02 Long term (current) use of antithrombotics/antiplatelets; N18.9 Chronic kidney disease, unspecified; F32.A Depression, unspecified; E78.5 Hyperlipidemia, unspecified; Z79.899 Other long term (current) drug therapy
CPT/HCPCS: 88305; 88312; 88342; J2704; J7120